=== PATIENT | male | born 1985 | race Caucasian/White ===

== ENCOUNTER 2018-07-03 16:43 | Emergency (ER) | payer OTHER ==
[~2018-07-03] VITALS: Ht 180.3 cm; Wt 84.0 kg
[~2018-07-03 16:43] MED LIST: AMOXICILLIN500 MG OR; BENADRYL 50MG C50 MG OR; LORTAB 10 OR; LORTAB 5 OR; ULTRAM50 M1 PO; ULTRAM50 MG OR; no meds
[2018-07-03] MEDS ORDERED: FLEXERIL PO (18:33)
[2018-07-03 18:36] VITALS: BP 137/96
== END 2018-07-03 18:45 | disposition home or self-care (01) | DRG 914 ==
LOC: ED 16:43
DX: S39.002A Unspecified injury of muscle, fascia and tendon of lower back, initial encounter (principal); S29.002A Unspecified injury of muscle and tendon of back wall of thorax, initial encounter; F17.210 Nicotine dependence, cigarettes, uncomplicated; V53.5XXA Driver of pick-up truck or van injured in collision with car, pick-up truck or van in traffic accident, initial encounter

== ENCOUNTER 2019-03-13 02:44 | Emergency (ER) | payer OTHER ==
[~2019-03-13] VITALS: Ht 180.3 cm; Wt 90.0 kg
[~2019-03-13 02:44] MED LIST changes: +FLEXERIL PO
[2019-03-13] MEDS ORDERED: IBUPROFEN600 MG PO (03:14)
[2019-03-13] MEDS ORDERED: FLEXERIL PO (03:14)
[2019-03-13 03:19] VITALS: BP 133/89
== END 2019-03-13 03:27 | disposition home or self-care (01) | DRG 552 ==
LOC: ED 02:44
DX: M54.5 Low back pain (principal); G89.29 Other chronic pain; F17.210 Nicotine dependence, cigarettes, uncomplicated

== ENCOUNTER 2021-01-18 20:31 | Emergency (ER) | payer SELFPAY ==
[~2021-01-18 20:31] MED LIST changes: +IBUPROFEN600 MG PO
== END 2021-01-18 21:56 | disposition left against medical advice (07) | DRG 951 ==
LOC: ED 20:31 → LWOBS 21:56
DX: Z53.21 Procedure and treatment not carried out due to patient leaving prior to being seen by health care provider (principal)

== ENCOUNTER 2021-05-23 20:27 | Emergency (ER) | payer BC ==
[~2021-05-23] VITALS: Ht 180.3 cm; Wt 91.0 kg
[2021-05-23] MEDS ORDERED: KEFLEX500 MG PO (21:28)
[2021-05-23 21:32] VITALS: BP 119/61
== END 2021-05-23 21:37 | disposition home or self-care (01) | DRG 914 ==
LOC: ED 20:27
DX: S61.041A Puncture wound with foreign body of right thumb without damage to nail, initial encounter (principal); F17.200 Nicotine dependence, unspecified, uncomplicated; W29.8XXA Contact with other powered hand tools and household machinery, initial encounter; Y93.89 Activity, other specified; Y92.009 Unspecified place in unspecified non-institutional (private) residence as the place of occurrence of the external cause

== ENCOUNTER 2023-11-10 18:36 | Emergency (ER) | payer BC ==
[~2023-11-10] VITALS: Ht 180.3 cm; Wt 95.0 kg
[~2023-11-10 18:36] MED LIST changes: +KEFLEX500 MG PO
[2023-11-10 18:42] VITALS: BP 154/87
[2023-11-10] MEDS ORDERED: LIDOcaine HCl 1% (Local Anesth.) 20 ML VIAL STI ONE (19:30)
[2023-11-10] MEDS ORDERED: POVIDONE IODINE 0.5 OZ/BTL TOP ONE (19:30)
[2023-11-10] MEDS ORDERED: KEFLEX500 MG PO (20:01)
[2023-11-10 20:13] VITALS: BP 154/87
== END 2023-11-10 20:17 | disposition home or self-care (01) | DRG 914 ==
LOC: ED 18:36
PROC: 0HC5XZZ Extirpation of Matter from Chest Skin, External Approach (ICD-10-PCS; principal; 2023-11-10)
DX: S21.142A Puncture wound with foreign body of left front wall of thorax without penetration into thoracic cavity, initial encounter (principal); W20.8XXA Other cause of strike by thrown, projected or falling object, initial encounter; Y92.89 Other specified places as the place of occurrence of the external cause; Y99.0 Civilian activity done for income or pay